=== PATIENT | female | born 2000 ===

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

== ENCOUNTER 2022-06-05 10:00 | Inpatient (IN) ==
[2022-06-05] MEDS ORDERED: CITRIC ACID/SODIUM CITRATE 30 ML UDCUP PO ONE (10:12)
[2022-06-05] MEDS ORDERED: FAMOTIDINE 20 MG/2 ML VIAL IV ONE (10:12)
[2022-06-05] MEDS ORDERED: CARBOPROST TROMETHAMINE 250 MCG/ML AMP IM PRN (10:12)
[2022-06-05] MEDS ORDERED: miSOPROStoL 200 MCG TABLET RECTAL PRN (10:12)
[2022-06-05] MEDS ORDERED: TRANEXAMIC ACID 1,000 MG in SODIUM CHLORIDE 0.9% 100 ML IV PRN (10:12)
[2022-06-05] MEDS ORDERED: OXYTOCIN/LR 20 UNIT/1,000 ML BAG IV ONE ×2 (10:12→16:07)
[2022-06-05] MEDS ORDERED: METHYLERGONOVINE 0.2 MG/1 ML AMP IM PRN (10:12)
[2022-06-05] MEDS ORDERED: OXYTOCIN/LR 30 UNIT/1,000 ML BAG IV ONE (10:15)
[2022-06-05] MEDS ORDERED: OXYTOCIN 10 UNIT/ML VIAL IM ONE (10:15)
[2022-06-05] MEDS ORDERED: LACTATED RINGERS 1,000 ML IV SCH ×2 (10:30→16:30)
[2022-06-05] MEDS ORDERED: ceFAZolin 3,000 MG in SYRINGE 1 EACH IV ONE (10:30)
[2022-06-05 10:50] LABS: Basophils % 0.4 % (0.0-0.8); Eosinophils # 0.1 10*3/uL (0.0-0.87); Eosinophils % 1.5 % (0.00-10.9); Hematocrit 32.2 VOL% (35.7-47.0); Hemoglobin 10.2 GM/DL (12.0-16.0); Immature Granulocytes % 0.4 %; Immature Granulocytes Absolute 0.03 #; Lymphocytes # 2.3 10*3/uL (1.4-4.0); Lymphocytes % 30.9 % (21.3-54.2); Mean Corpuscular HGB Conc 31.7 GM/DL (32-36); Mean Platelet Volume 11.2 FL (9.6-12.0); Monocytes # 0.6 10*3/uL (0.11-0.8); Monocytes % 7.5 % (1.7-12.7); Neutrophils % 59.3 % (38.7-73.9); Platelet Count 238 T/CUMM (130-400); Red Cell Distribution Width 13.8 % (9.3-17.3); White Blood Count 7.5 T/CUMM (4-12)
[2022-06-05 11:14] LABS: Alanine Aminotransferase 13 U/L (13-56); Albumin 2.2 G/DL (3.4-5.0); Alkaline Phosphatase 171 U/L (45-117); Aspartate Amino Transferase 10 U/L (0-37); Bilirubin,Total < 0.39 MG/DL (0.20-1.00); Blood Urea Nitrogen 14 MG/DL (7-18); Carbon Dioxide 22 MMOL/L (21-32); Chloride 111 MMOL/L (98-107); Glucose 90 MG/DL (74-106); Osmolality,Calculated 273.8 MOS/KG (273-304); Sodium 137 MMOL/L (136-145); Total Protein 6.2 G/DL (6.4-8.2)
[2022-06-05] MEDS ORDERED: miSOPROStoL 200 MCG TABLET ONE (13:43)
[2022-06-05] MEDS ORDERED: CARBOPROST TROMETHAMINE 250 MCG/ML AMP IM ONE (13:44)
[2022-06-05] MEDS ORDERED: METHYLERGONOVINE 0.2 MG/1 ML AMP ONE (13:44)
[2022-06-05] MEDS ORDERED: BUPIVACAINE SPINAL 0.75% 2 ML AMP SPINAL ONE (14:53)
[2022-06-05] MEDS ORDERED: buprenorphine HCL 0.3 MG/ML VIAL ONE (14:53)
[2022-06-05] MEDS ORDERED: ONDANSETRON 4 MG/2 ML VIAL ONE (14:53)
[2022-06-05] MEDS ORDERED: LACTATED RINGERS 1,000 ML IV ONE (15:08)
[2022-06-05] MEDS ORDERED: PHENYLEPHRINE 1 MG/10 ML SYRINGE IV ONE (15:21)
[2022-06-05] MEDS ORDERED: GLYCOPYRROLATE 0.4 MG/2 ML VIAL ONE (15:21)
[2022-06-05 15:41] LABS: Cord Arterial Blood HCO3 21.2 MMOL/L
[2022-06-05 15:42] LABS: Bilirubin,Urine Negative (Negative); Blood, Urine Negative (Negative); Glucose,Urine (UA) Negative (Negative); Ketones,Urine Negative (Negative); Nitrite,Urine Negative (Negative); Protein,Urine Negative (Negative); Urine Appearance Clear (Clear); Urine Color Yellow (Yellow); Urine Specific Gravity >= 1.030 (1.001-1.035); Urine Urobilinogen 0.2 eU/dL (<2.0)
[2022-06-05 15:44] LABS: Cord Venous Blood HCO3 22.8 MMOL/L; Cord Venous Blood PCO2 44.8 MMHG; Cord Venous Blood PO2 39.4
[2022-06-05 15:46] LABS: Bacteria,Urine Occasional /HPF (Few); Mucus,Urine Occasional /LPF (Occasional); RBC,Urine 6 /HPF (0-4); Squamous Epithelial Cell,Urine Occasional /HPF (0-10)
[2022-06-05] MEDS ORDERED: KETOROLAC 30 MG/1 ML VIAL ONE (15:50)
[2022-06-05] MEDS ORDERED: RHO(D) IMMUNE GLOBULIN 300 MCG SYRINGE IM ONE (16:07)
[2022-06-05] MEDS ORDERED: ONDANSETRON 4 MG/2 ML VIAL IV PRN (16:07)
[2022-06-05] MEDS ORDERED: ACETAMINOPHEN 325 MG TABLET PO PRN (16:07)
[2022-06-05] MEDS ORDERED: MAGNESIUM HYDROXIDE SUSP 30 ML UDCUP PO PRN (16:07)
[2022-06-05] MEDS ORDERED: SIMETHICONE CHEW 80 MG TABLET PO PRN (16:07)
[2022-06-05] MEDS: ACETAMINOPHEN 500 MG TABLET PO SCH (18:40)
[2022-06-05] MEDS: KETOROLAC 30 MG/1 ML VIAL IV SCH (21:29)
[2022-06-06] MEDS: ACETAMINOPHEN 500 MG TABLET PO SCH ×3 (00:26→12:34)
[2022-06-06] MEDS: KETOROLAC 30 MG/1 ML VIAL IV SCH ×2 (03:40→10:07)
[2022-06-06 07:39] LABS: Basophils % 0.4 % (0.0-0.8); Eosinophils # 0.1 10*3/uL (0.0-0.87); Eosinophils % 0.9 % (0.00-10.9); Hematocrit 27.5 VOL% (35.7-47.0); Hemoglobin 8.5 GM/DL (12.0-16.0); Immature Granulocytes % 0.4 %; Immature Granulocytes Absolute 0.03 #; Lymphocytes % 27.3 % (21.3-54.2); Mean Corpuscular HGB Conc 30.9 GM/DL (32-36); Mean Corpuscular Volume 88.1 FL (87-102); Mean Platelet Volume 10.9 FL (9.6-12.0); Monocytes # 0.5 10*3/uL (0.11-0.8); Monocytes % 7.2 % (1.7-12.7); Neutrophils % 63.8 % (38.7-73.9); Platelet Count 172 T/CUMM (130-400); Red Blood Count 3.12 MC/CUMM (3.8-5.5); Red Cell Distribution Width 13.9 % (9.3-17.3); White Blood Count 7.4 T/CUMM (4-12)
[2022-06-06] MEDS: DOCUSATE SODIUM 100 MG CAPSULE PO SCH ×2 (08:48→20:59)
[2022-06-06] MEDS: MULTIVITAMIN (PRENATAL) TABLET PO SCH (08:48)
[2022-06-06] MEDS: METOCLOPRAMIDE 10 MG TABLET PO SCH ×2 (14:32→22:00)
[2022-06-06] MEDS: IBUPROFEN 800 MG TABLET PO PRN (20:59)
[2022-06-07] MEDS: METOCLOPRAMIDE 10 MG TABLET PO SCH (06:00)
[2022-06-07] MEDS ORDERED: FERROUS SULFATE 325 MG TABLET PO SCH (08:30)
[2022-06-07] MEDS: DOCUSATE SODIUM 100 MG CAPSULE PO SCH ×2 (10:09→21:41)
[2022-06-07] MEDS: MULTIVITAMIN (PRENATAL) TABLET PO SCH (10:09)
[2022-06-07] MEDS: IBUPROFEN 800 MG TABLET PO PRN ×2 (10:10→17:21)
[2022-06-07] MEDS: FERROUS SULFATE 325 MG TABLET PO SCH (21:41)
[2022-06-08] MEDS: FERROUS SULFATE 325 MG TABLET PO SCH ×2 (00:44→09:20)
[2022-06-08] MEDS: DOCUSATE SODIUM 100 MG CAPSULE PO SCH ×2 (00:44→09:20)
[2022-06-08] MEDS: MULTIVITAMIN (PRENATAL) TABLET PO SCH (09:20)
[2022-06-08] MEDS: IBUPROFEN 800 MG TABLET PO PRN (09:21)
[2022-06-08 10:47] VITALS: BP 136/83
[2022-06-08] MEDS ORDERED: MEASLES/MUMPS/RUBELLA VACCINE 0.5 ML VIAL SUBCUT ONE (11:35)
== END 2022-06-08 12:00 | disposition home or self-care (01) | DRG 788 ==
LOC: N.LD 10:00 → N.OB 06-06 09:04
PROVIDERS: ADMIT Obstetrics & Gynecology; ATTEND Obstetrics & Gynecology
PROC: LDCSECT (ICD-10-PCS; 2022-06-05 15:00)